=== PATIENT | male | born 1950 | race Caucasian/White ===

== ENCOUNTER → 2018-01-18 | Day surgery (SDC) | payer OTHER ==
[~2018-01-18] VITALS: Ht 182.9 cm; Wt 88.5 kg
[~2018-01-18] MED LIST: ATORVASTATIN CA80 M1 PO; FLOMAX0.4 M1 PO; IBUPROFEN600 M1 PO; PERCOCET 5-3251 EACH PO; ZOFRAN ODT4 M1 PO
--- NOTE | 2018-01-18 19:14 | Operative Report ---
Operative/Inv Procedure Report Surgery Date: 01/18/18 Name of Procedure: cytoscopy: right ureteroscopy with laser lithotrypsy of ureter stone, fluoroscopy with retrograde pyelogram. Pre-Operative Diagnosis: Right ureter stone, steinstrasse. Post-Operative Diagnosis: Same Estimated Blood Loss: scant Surgeon/Typesetter Apprentice: Jabari Marques MD Anesthesia: laryngeal mask airway Implants: None Specimens: Right ureter stone fragments Complications: None Operative Indication: Improved Operative/Procedure Note Note: The patient was taken to the operating room, and placed on the OR table in supine position. With the patient awake, timeout was performed in order to confirm; correct patient, correct procedure, as well as correct laterality, and other pertinent justin-operative information. After adequate anesthesia and antibiotics, the patient was then placed lithotomy stirrups, draped and prepped in the usual surgical fashion. A 22 [place] cystoscope sheath with 30 angle lens was inserted into the bladder without difficulty. Upon entering the bladder, the bladder was noted to be free of tumor free of stone. Both orifices were in their orthotopic position. The right ureter orifice was intubated with an 8fr cone-tip catheter, and a retrograde pyelogram with fluoroscopy was performed. An 8 mm right distal ureter filling defect c/w stone was visualized, as well as, mild right proximal hydronephrosis. The cone-tip catheter was removed, followed by insertion of a 0.035 Glidewire, which was advanced into the right renal pelvis without difficulty. Placement confirmed on fluoroscopy. Leaving the Glidewire in place, the cystoscope was removed. Using a rigid Micro-6 ureteroscope, the bladder was then re-entered under direct visualization. The rigth ureter orifice was clearly visible, and wide open. The ureteroscope was ealily advanced/inserted into the open ureter under direct visualization. The ureteroscope was advanced easily and gently into the proximal ureter, and the large ureteral stone was visualized. Under direct visualization the 365 g holmium YAG laser fiber was inserted through the ureteroscope. With the laser fiber in direct contact with the stone, laser lithotripsy was performed in order to pulverize the stone into multiple tiny fragments. The fragments were all flushed out and sent to pathology for analysis. At this point, the ureteroscope was then gently advanced into the right renal pelvis without difficulty. No other stones, nor any tumor was visualized in the renal pelvis. The entire length of the ureter was aslo visualize carefully on the way out with the ureteroscope, and the same findings of no stones or tumor was confirmed. The bladder was then drained, and the cystoscope was removed. The patient tolerated the procedure well was then taken to the recovery room in satisfactory condition. The patient is to follow up in 1-2 weeks for stent removal. Discharge Disposition: PACU Additional Comments: f/u renal US in 2 weeks. CC: Jabari Marques MD
--- NOTE | 2018-01-20 10:02 | RADIOLOGY REPORT ---
EXAMINATION: XR ABDOMEN CLINICAL INDICATION: Right ureteroscopy, lithotripsy and retrograde exam performed in operating room. COMPARISON: Renal ultrasound from 01/11/2018 TECHNIQUE: Intraoperative fluoroscopic imaging of the abdomen was utilized. Number of saved images: 16. Fluoroscopy time: 1.2 minutes. Dose: 16.6 mGy (0.539 mGym2) FINDINGS/IMPRESSION: Fluoroscopic imaging equipment was provided to the operating room. Please refer to Dr. Marques's operative report regarding indications, intraoperative findings and specific procedures performed.
== END ==
LOC: STS 01:24
DX: N13.2 Hydronephrosis with renal and ureteral calculous obstruction (principal)
CPT/HCPCS: 36415; 74018; 93005; 93010; J0131; J2250